=== PATIENT | female | born 1990 | race African-American/Black ===

== ENCOUNTER 2018-04-23 19:54 | Emergency (ER) | payer BC ==
[~2018-04-23] VITALS: Ht 170.2 cm; Wt 74.8 kg
[2018-04-23 20:10] VITALS: TEMP 36.9; Ht 170.2 cm; Wt 74.8 kg
[2018-04-23] MEDS ORDERED: AMPH15CA7 PO (20:39)
[2018-04-23] MEDS ORDERED: IUD'IUD IU (20:39)
[2018-04-23] MEDS ORDERED: VALS160T58 PO (20:39)
--- NOTE | 2018-04-23 21:59 | DIAGNOSTIC IMAGING REPORT ---
CHEST ONE VIEW PORTABLE CLINICAL HISTORY: 28 years-old Female presenting with cp and sob . TECHNIQUE: Portable upright AP view of the chest was obtained. COMPARISON: None. FINDINGS: Cardiomediastinal silhouette normal. Lungs and pleural spaces clear. Osseous structures normal. Upper abdomen normal. IMPRESSION: 1. No acute cardiopulmonary disease. Electronically signed by: Zac Carrera M.D. 04/23/2018 9:58 PM Dictated Date/Time: 04/23/2018 9:57 PM
[2018-04-23 22:11] LABS: BASO % 0.1 %; BASO ABS # 0.01 K/uL (0-0.2); EOS % 0.5 %; EOS ABS # 0.04 K/uL (0-0.5); HEMATOCRIT 44.4 % (37-47); HEMOGLOBIN 15.4 g/dL (12.0-16.0); IG# 0.02 K/uL (0.00-0.02); LYMPH % 27.3 %; LYMPH ABS # 2.18 K/uL (1.2-3.4); MEAN CELL VOLUME 92.7 fL (80-100); MEAN CORPUSCULAR HEMOGLOBIN 32.2 pg (25-34); MEAN CORPUSCULAR HGB CONC 34.7 g/dl (32-36); MEAN PLATELET VOLUME 8.8 fL (7.4-10.4); MONO % 5.8 %; MONO ABS # 0.46 K/uL (0.11-0.59); NEUT ABS # 5.27 K/uL (1.4-6.5); PLATELET COUNT 304 K/uL (130-400); RED CELL DISTRIBUTION WIDTH CV 12.3 % (11.5-14.5); RED CELL DISTRIBUTION WIDTH SD 41.4 fL (36.4-46.3); WHITE BLOOD COUNT 7.98 K/uL (4.8-10.8)
[2018-04-23 22:32] LABS: BLOOD UREA NITROGEN 12 mg/dl (7-18); CALCIUM 9.6 mg/dl (8.5-10.1); CARBON DIOXIDE 29 mmol/L (21-32); CREATININE 0.95 mg/dl (0.60-1.20); GLUCOSE 84 mg/dl (70-99); POTASSIUM 3.6 mmol/L (3.5-5.1); SODIUM 137 mmol/L (136-145)
[2018-04-23 23:16] VITALS: BP 141/79; PULSE 72; O2SAT 98
--- NOTE | 2018-04-24 01:34 | EMERGENCY ROOM VISIT NOTE ---
History Report prepared by Jose Antonio: Emma Myers Under the Supervision of: Dr. Indra Howard D.O. First contact with patient: 21:31 Chief Complaint: HYPERTENSION Stated Complaint: HIGH BLOOD PRESSURE, SOB, DIZZY History of Present Illness The patient is a 28 year old female who presents to the Emergency Room with complaints of high blood pressure for the past three weeks. She states that she is on HCTZ for her history of hypertension. She states that she has not missed any recent doses. The patient states that she has been having shortness of breath, feeling lightheaded and like she is going to pass out, and more tired than usual. She states that her shortness of breath is better with sitting. The patient denies any chest pain or palpitations. Patient denies swelling of calves , recent trips, or prior history of DVT.She states that in December she went to her PCP for a check and her blood pressure was about 128/82. She then states that about a month ago she went to [place] for a virus and her blood pressure was 155/110 which she states is high for her. She states that her father also has a history of hypertension. She also states that she had both of her sons with preeclampsia. Source of History: patient Onset: past three weeks Position: other (generalized ) Quality: other (high blood pressure ) Associated Symptoms: + SOB, No chest pain Note: additional symptoms: lightheaded, feeling like she is going to pass out Review of Systems See HPI for pertinent positives & negatives. A total of 10 systems reviewed and were otherwise negative. Past Medical & Surgical HTN (hypertension) Social History Smoking Status: Never Smoker Housing Status: lives with family Current/Historical Medications Scheduled Amphetamine-Dextroamphetamine 15MG (Adderall Xr 15MG), 15 MG PO DAILY Iud's (Paragard Intrauterine Administrative Law Judge), 1 EA IU UD Valsartan/Hctz (Diovan Hct 160MG/12.5MG), 1 TAB PO DAILY Allergies Coded Allergies: No Known Allergies (Unverified , 04/23/18) Physical Exam Vital Signs Date Time Temp Pulse Resp B/P (MAP) Pulse Ox O2 Delivery O2 Flow Rate FiO2 04/23/18 23:16 72 18 141/79 98 04/23/18 22:00 91 18 154/109 98 Room Air 04/23/18 21:30 88 22 147/110 98 Room Air 04/23/18 21:05 89 155/105 92 151/109 112 163/111 04/23/18 21:00 81 18 149/107 97 Room Air 04/23/18 20:35 92 04/23/18 20:30 85 21 142/110 98 Room Air 04/23/18 20:22 161/100 04/23/18 20:10 36.9 96 20 157/119 99 Room Air Physical Exam GENERAL: Sitting up in bed, alert, well appearing, well nourished, no distress, non-toxic EYE EXAM: normal conjunctiva. PERRL and EOM's intact. OROPHARYNX: no exudate, no erythema, lips, buccal mucosa, and tongue normal and mucous membranes are moist NECK: supple, no nuchal rigidity, no adenopathy, non-tender LUNGS: Clear to auscultation. Normal chest wall mechanics HEART: no murmurs, S1 normal and S2 normal ABDOMEN: abdomen soft, non-tender, normo-active bowel sounds, no masses, no rebound or guarding. BACK: Back is symmetrical on inspection and there is no deformity, no midline tenderness, no CVA tenderness. SKIN: no rashes and no bruising UPPER EXTREMITIES: upper extremities are grossly normal. LOWER EXTREMITIES: No pitting edema. Calves equal bilateral. NEURO EXAM: Normal sensorium, cranial nerves II-XII intact, normal speech, no weakness of arms, no weakness of legs. No drift. Finger to nose intact. Gross sensation intact. Medical Decision & Procedures ER Provider Diagnostic Interpretation: Radiology results as stated below per my review and the radiologist's interpretation: CHEST ONE VIEW PORTABLE CLINICAL HISTORY: 28 years-old Female presenting with cp and sob . TECHNIQUE: Portable upright AP view of the chest was obtained. COMPARISON: None. FINDINGS: Cardiomediastinal silhouette normal. Lungs and pleural spaces clear. Osseous structures normal. Upper abdomen normal. IMPRESSION: 1. No acute cardiopulmonary disease. Electronically signed by: Zac Carrera M.D. 04/23/2018 9:58 PM Dictated Date/Time: 04/23/2018 9:57 PM Laboratory Results 04/23/18 22:00 Red Blood Count 4.79, Mean Corpuscular Volume 92.7, Mean Corpuscular Hemoglobin 32.2, Mean Corpuscular Hemoglobin Concent 34.7, Mean Platelet Volume 8.8, Neutrophils (%) (Auto) 66.0, Lymphocytes (%) (Auto) 27.3, Monocytes (%) (Auto) 5.8, Eosinophils (%) (Auto) 0.5, Basophils (%) (Auto) 0.1, Neutrophils # (Auto) 5.27, Lymphocytes # (Auto) 2.18, Monocytes # (Auto) 0.46, Eosinophils # (Auto) 0.04, Basophils # (Auto) 0.01 04/23/18 22:00 Test 04/23/18 22:00 White Blood Count 7.98 K/uL (4.8-10.8) Red Blood Count 4.79 M/uL (4.2-5.4) Hemoglobin 15.4 g/dL (12.0-16.0) Hematocrit 44.4 % (37-47) Mean Corpuscular Volume 92.7 fL (80-100) Mean Corpuscular Hemoglobin 32.2 pg (25-34) Mean Corpuscular Hemoglobin Concent 34.7 g/dl (32-36) Platelet Count 304 K/uL (130-400) Mean Platelet Volume 8.8 fL (7.4-10.4) Neutrophils (%) (Auto) 66.0 % Lymphocytes (%) (Auto) 27.3 % Monocytes (%) (Auto) 5.8 % Eosinophils (%) (Auto) 0.5 % Basophils (%) (Auto) 0.1 % Neutrophils # (Auto) 5.27 K/uL (1.4-6.5) Lymphocytes # (Auto) 2.18 K/uL (1.2-3.4) Monocytes # (Auto) 0.46 K/uL (0.11-0.59) Eosinophils # (Auto) 0.04 K/uL (0-0.5) Basophils # (Auto) 0.01 K/uL (0-0.2) RDW Standard Deviation 41.4 fL (36.4-46.3) RDW Coefficient of Variation 12.3 % (11.5-14.5) Immature Granulocyte % (Auto) 0.3 % Immature Granulocyte # (Auto) 0.02 K/uL (0.00-0.02) D-Dimer < 190 ug/L FEU (0-500) Anion Gap 7.0 mmol/L (3-11) Est Creatinine Clear Calc Drug Dose 91.4 ml/min Estimated GFR () 93.2 Estimated GFR (Non- 80.4 BUN/Creatinine Ratio 12.4 (10-20) Calcium Level 9.6 mg/dl (8.5-10.1) Troponin I < 0.015 ng/ml (0-0.045) Laboratory results per my review. ECG Per My Interpretation Indication: tachycardia Rate (beats per minute): 74 Rhythm: sinus rhythm Findings: T-wave inversion (lead III ), other (no PVCs) ED Course ED COURSE: Vital signs were reviewed and showed hypertension and tachycardia The patients medical record was reviewed The above diagnostic studies were performed and reviewed. ED treatments and interventions as stated above. 2134: The patient was evaluated in room C12. A complete history and physical examination was performed. 2253: Upon reevaluation, the patient is doing better. I discussed my findings with the patient and she understands and agrees with the treatment plan. Based on the patients age, coexisting illnesses, exam and lab findings the decision to treat as an outpatient was made. The patient remained stable while under my care. The patient appeared well at the time of discharge. Medical Decision Differential diagnosis includes etiologies such as benign positional vertigo, dehydration, hypovolemia, anemia, tumor, infection, hypoglycemia, electrolyte abnormalities, cardiac sources, intracerebral event, toxicologic, neurologic, as well as others were entertained. Patient is the 28-year-old female that presents the ER for feeling lightheaded for the past several days and shortness of breath. She notes that shortness of breath is worse with exertion. CBC along with BMP and troponin was negative. D -dimer was negative and a low risk cardiac patient. Chest x-ray was unremarkable. Patient was neurologically intact. I do not believe this to be central. She was concerned about her blood pressure. Systolics were 150s. She does take oral medications. Will not change at this time. Did recommend following up with PCP as an outpatient. Discussed with Pt concerning signs and symptoms to watch out for. Pt was instructed to follow up with their PCP and discussed with the patient their option to return to the ED at anytime for persistent or worsening symptoms. The appropriate anticipatory guidance and out- patient management, including indications for return to the emergency department , were explained at length to the patient and understood. Medication Reconcilliation Current Medication List: was personally reviewed by me Blood Pressure Screening Patient's blood pressure: Elevated blood pressure Blood pressure disposition: Elevated BP felt to be situational Impression Primary Impression: HTN (hypertension) Additional Impressions: Shortness of breath Dizzy Scribe Attestation The scribe's documentation has been prepared under my direction and personally reviewed by me in its entirety. I confirm that the note above accurately reflects all work, treatment, procedures, and medical decision making performed by me. Departure Information Dispostion Home / Self-Care Referrals No Doctor, Assigned (PCP) Forms HOME CARE DOCUMENTATION FORM, IMPORTANT VISIT INFORMATION, WORK / SCHOOL INSTRUCTIONS Patient Instructions My [facility] Additional Instructions Please follow up with your primary care doctor with in the next 24 hours. Any worsening of your symptoms, please return to the ED immediately. This includes any fevers greater than 100.4, worsening pain, chest pain, shortness breath, persistent nausea, vomiting, unable to eat or drink, or any other concerning signs or symptoms from your standpoint. Please make sure that you follow-up with your PCP in regards to your blood pressures. Please continue your current medications. Problem Qualifiers Primary Impression: HTN (hypertension) Hypertension type: unspecified Qualified Codes: I10 - Essential (primary) hypertension
== END 2018-04-23 23:17 | disposition home or self-care (01) ==
LOC: C.EDB 19:55 → C.EDC 23:17
DX: I10 Essential (primary) hypertension (principal); R06.02 Shortness of breath; R42 Dizziness and giddiness; Z79.899 Other long term (current) drug therapy

== ENCOUNTER 2018-04-26 13:35 | Emergency (ER) | payer BC ==
[~2018-04-26] VITALS: Ht 172.7 cm; Wt 74.3 kg
[~2018-04-26 13:35] MED LIST: AMPH15CA7 PO; IUD'IUD IU; VALS160T58 PO
[2018-04-26 13:46] VITALS: TEMP 36.7; Ht 172.7 cm; Wt 74.3 kg
[2018-04-26] MEDS ORDERED: VALSARTAN 80 MG TAB PO STA (14:23)
[2018-04-26] MEDS ORDERED: HYDROCHLOROTHIAZIDE 25 MG TAB PO STA (14:24)
--- NOTE | 2018-04-26 14:35 | EMERGENCY ROOM VISIT NOTE ---
History Report prepared by Jose Antonio: Janis Naavs Under the Supervision of: Dr. Jim Sykes M.D. First contact with patient: 14:04 Chief Complaint: HYPERTENSION Stated Complaint: SOB DIZZY, HIGH BLOOD PRES History of Present Illness The patient is a 28 year old female who presents to the Emergency Room with complaints of persistent hypertension. She states her blood pressure has "been creeping up" recently, and will get "into the 150's". The patient has a history of high blood pressure and has been on BP medication for the past 9 months. She has 2 children, both delivered via section, and experienced preeclampsia with both pregnancies. She states she has been experiencing "wooziness and lightheadedness" as well as shortness of breath, "cold-sweats" and tingling in the feet. Her symptoms seem to be worse before and after meals. She denies any recent chest pain or urinary symptoms. The patient's maternal grandparents both have DM and her Father has a history of hypertension. The patient was seen here in the ED on April 23 for the same symptoms. She had lab work done that produced a normal CBC, normal renal panel, normal D- Dimer and normal Troponin. She also had a normal Chest X-Ray. 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 A total of 10 systems reviewed and were otherwise negative. Past Medical & Surgical Surgical Problems: (1) History of 2 sections Family History Diabetes mellitus Hypertension Social History Smoking Status: Never Smoker Alcohol Use: occasionally Drug Use: none Marital Status: Housing Status: lives with family Occupation Status: employed Current/Historical Medications Scheduled Amphetamine-Dextroamphetamine 15MG (Adderall Xr 15MG), 15 MG PO DAILY Iud's (Paragard Intrauterine X Ray Equipment Servicer), 1 EA IU UD Valsartan/Hctz (Diovan Hct 160MG/12.5MG), 1 TAB PO DAILY Valsartan/Hctz (Diovan Hct 320MG/25MG), 1 TAB PO DAILY Allergies Coded Allergies: No Known Allergies (Unverified , 04/26/18) Physical Exam Vital Signs Date Time Temp Pulse Resp B/P (MAP) Pulse Ox O2 Delivery O2 Flow Rate FiO2 04/26/18 16:10 72 18 133/91 100 04/26/18 15:38 88 25 127/93 100 Room Air 04/26/18 14:11 88 04/26/18 13:46 36.7 95 20 148/106 99 Room Air Physical Exam GENERAL: Patient is in no acute distress. HEENT: No acute trauma, normocephalic atraumatic, mucous membranes moist, no nasal congestion, no scleral icterus, PERRL. NECK: No stridor, no adenopathy, no meningismus, trachea is midline. LUNGS: Clear to auscultation bilaterally, no wheeze, no rhonchi, breath sounds equal. HEART: Without murmurs gallops or rubs, regular rate and rhythm. ABDOMEN: Soft, nontender, bowel sounds positive, no hernias, no peritonitis. EXTREMITIES: No cyanosis or edema, full range of motion of all the joints without pain or difficulty, no signs for acute trauma. NEUROLOGIC: Oriented x 3, no acute motor or sensory deficits, no focal weakness , no cerebellar deficits or pronator drift. SKIN: No rash, no jaundice, no diaphoresis. Medical Decision & Procedures Laboratory Results 04/26/18 14:40 Test 04/26/18 14:10 04/26/18 14:40 Urine Color YELLOW Urine Appearance CLEAR (CLEAR) Urine pH 7.0 (4.5-7.5) Urine Specific [place] 1.020 (1.000-1.030) Urine Protein NEG (NEG) Urine Glucose (UA) NEG (NEG) Urine Ketones NEG (NEG) Urine Occult Blood TRACE (NEG) Urine Nitrite NEG (NEG) Urine Bilirubin NEG (NEG) Urine Urobilinogen NEG (NEG) Urine Leukocyte Esterase MODERATE (NEG) Urine WBC (Auto) 10-30 /hpf (0-5) Urine RBC (Auto) 0-4 /hpf (0-4) Urine Hyaline Casts (Auto) 0 /lpf (0-5) Urine Epithelial Cells (Auto) >30 /lpf (0-5) Urine Bacteria (Auto) NEG (NEG) Anion Gap 7.0 mmol/L (3-11) Est Creatinine Clear Calc Drug Dose 86.4 ml/min Estimated GFR () 92.0 Estimated GFR (Non- 79.4 BUN/Creatinine Ratio 13.1 (10-20) Calcium Level 8.5 mg/dl (8.5-10.1) Magnesium Level 2.1 mg/dl (1.8-2.4) Troponin I < 0.015 ng/ml (0-0.045) Thyroid Stimulating Hormone (TSH) 0.598 uIu/ml (0.300-4.500) Human Chorionic Gonadotropin, Qual NEG (NEG) Laboratory results reviewed by me. Medications Administered Medications (Trade) Dose Ordered Sig/Rj Route Start Time Stop Time Status Last Admin Dose Admin Valsartan (Diovan Tab) 160 mg NOW STAT PO 04/26/18 14:23 04/26/18 14:24 DC 04/26/18 14:59 160 MG Hydrochlorothiazide (Hydrochlorothiazide Tab) 12.5 mg NOW STAT PO 04/26/18 14:24 04/26/18 14:25 DC 04/26/18 15:00 12.5 MG ECG Per My Interpretation Indication: SOB/dyspnea Rate (beats per minute): 73 Rhythm: normal sinus Findings: other (no ST elevation, no PVC) ED Course 1408: The patient was evaluated in room B4. A complete history and physical exam was performed. 1423: Valsartan 160 mg PO. 1424: Hydrochlorothiazide 12.5 mg PO. 1545: I reevaluated the patient. She is feeling better. I discussed her results and discharge instructions and she verbalized complete understanding and agreement. Medical Decision The differential diagnoses considered include: Hypertension, electrolyte imbalance, stroke, dysrhythmia, UTI, , anemia There is no evidence for renal insufficiency or failure, no significant electrolyte abnormality. Patient appears to be in a euthyroid state. Urinalysis does not show infection but there was some contamination. testing was negative. On exam, there were no focal neurologic deficits. The patient was not toxic or febrile. Her workup from a few days ago was reviewed, it was unremarkable. The patient's symptoms are likely from her higher blood pressure. Her pressure was high when she was here just a few days ago. The pressure is high today. She had just taken her regular dose of Diovan and hydrochlorothiazide. She was given an extra dose of this medication. In effect, doubling her daily dose. The patient's blood pressure is improved. I think she can be discharged on twice the Diovan/hydrochlorothiazide dose that she was taking. She will follow as an outpatient, if worsening, she can return. She was reassured. Medication Reconcilliation Current Medication List: was personally reviewed by me Blood Pressure Screening Patient's blood pressure: Elevated blood pressure Blood pressure disposition: Referred to PCP Impression Primary Impression: Hypertension Additional Impression: Dizziness Scribe Attestation The scribe's documentation has been prepared under my direction and personally reviewed by me in its entirety. I confirm that the note above accurately reflects all work, treatment, procedures, and medical decision making performed by me. Departure Information Dispostion Home / Self-Care Prescriptions Valsartan/Hctz (DIOVAN HCT 320MG/25MG) 1 Tab Tab 1 TAB PO DAILY for 30 Days, #30 TAB 5 Refills Prov: Jim Sykes M.D. 04/26/18 Referrals No Doctor, Assigned (PCP) Patient Instructions My [facility] Additional Instructions double the blood pressure meds as suggested--the new tab I prescribed is already the double strength lab testing and sugar testing was all ok follow with Scottie or akira md for recheck of blood pressure and for any potential medication changes return if worsening Problem Qualifiers
[2018-04-26 15:20] LABS: BLOOD UREA NITROGEN 13 mg/dl (7-18); CALCIUM 8.5 mg/dl (8.5-10.1); CARBON DIOXIDE 27 mmol/L (21-32); CREATININE 0.96 mg/dl (0.60-1.20); GLUCOSE 85 mg/dl (70-99); SODIUM 137 mmol/L (136-145)
[2018-04-26] MEDS ORDERED: VALS320T2 PO (15:56)
[2018-04-26 16:10] VITALS: BP 133/91; PULSE 72; O2SAT 100
== END 2018-04-26 16:12 | disposition home or self-care (01) ==
LOC: C.EDB 13:38
DX: I10 Essential (primary) hypertension (principal); R42 Dizziness and giddiness; Z82.49 Family history of ischemic heart disease and other diseases of the circulatory system; Z79.899 Other long term (current) drug therapy